=== PATIENT | female | born 1985 | race Caucasian/White ===

== ENCOUNTER → 2018-09-10 12:34 | Outpatient (CLI) | payer OTHER, SELFPAY ==
--- NOTE | 2018-09-10 12:39 | US_ITS ---
US thyroid HISTORY: Follow-up thyroid nodules, history of thyroid biopsy ITS.REASON: AUTOMIMMUNE HYPOTHYROIDISM ORDERING PHYSICIAN: Morena Romero PATIENT AGE: 33 years Comparison: None FINDINGS: Right lobe: The right lobe measures 4.1 x 1.4 x 1.7 cm and demonstrates heterogeneous echogenicity. No discrete nodule. The left lobe is 4.6 x 1.5 x 1.8 cm also showing heterogeneous echogenicity. An isoechoic area in the lower pole on the left is once again noted a 2.7 x 1 cm similar to the previous exam. The isthmus is thickened at 7 mm. IMPRESSION: Overall no change in the enlarged thyroid gland with heterogeneous echogenicity. No change left-sided thyroid nodule
== END ==
PROVIDERS: PCP Nurse Practitioner Family; Visit Provider Nurse Practitioner Family
DX: E03.9 Hypothyroidism, unspecified (principal); R60.9 Edema, unspecified
CPT/HCPCS: 76536

== ENCOUNTER 2020-03-14 17:56 | Emergency (ER) | payer OTHER, SELFPAY ==
[2020-03-14 18:02] VITALS: BP 119/83; PULSE 80; RESP 18; TEMP 36.7; O2SAT 99; BMI 43.4
--- NOTE | 2020-03-14 18:12 | HMH.EDGENADL ---
ED Disposition Clinical Impression: Conjunctivitis Qualifiers: Conjunctivitis type: acute Acute conjunctivitis type: unspecified Laterality: right Qualified Code(s): H10.31 - Unspecified acute conjunctivitis, right eye Disposition: Home, Self-Care Condition on Discharge: Good Additional Instructions: use eye drops as directed and f/u w/ optometry for re-eval Referrals: Abner Noel MD [Primary Care Provider] - - Critical Care Critical Care Time: No Attestation: On 03/14/20, the high probability of a clinically significant, sudden or life threatening deterioration of the following system(s) required my full and direct attention, intervention and personal management. The time I documented below is in addition to time spent performing reported procedures but includes the following listed in this critical care notation. Medical Decision Making - Medical Records Medical records reviewed: Yes: I reviewed the patient's medical records. - Alexander Inquiry Pt receiving controlled substance: No Orders (Tests/Meds): ED MEDICATIONS Generic Name Dose Route Start Last Admin Trade Name Freq PRN Reason Stop Dose Admin Neomycin/Polymyxin/Bacitracin 2 gm 03/14/20 18:10 Neosporin Ophth Ointment 3.5gm Tube OP 03/14/20 18:11 ONCE ONE Tetracaine HCl 2 ml 03/14/20 18:10 Tetracaine 0.5% Ophth Solution 15ml OP 03/14/20 18:11 ONCE ONE General Adult HPI - General Stated complaint: Greese squirted in face Time Seen by Provider: 03/14/20 18:12 Mode of Arrival: Ambulatory Source of Information: Patient Limitations: No Limitations - History of Present Illness HPI narrative: Is a 35-year-old female who presents with complaint of right eye pain after sustaining a burn with hot grease while cooking just prior to arrival. Patient reports cooking frozen Romanian fries with hot grease whenever inserting the fries some grease splashed back into her face. Patient reports constant burning to the right eye without any palliating or provoking symptoms. No visual acuity change. No other complaints or injuries. - Related Data Home Medications Medication Instructions Recorded Confirmed Furosemide [Furosemide 20mg Tab] 20 mg PO DAILY 08/11/18 08/11/18 Levothyroxine Sodium 88 mcg PO DAILY 08/11/18 08/11/18 [Levothyroxine 88mcg (0.088mg) Tab] Omeprazole [Omeprazole 20mg 20 mg PO DAILY 08/11/18 08/11/18 Capsule] Potassium Chloride [Micro-K 10mEq 1 tab PO DAILY 08/11/18 08/11/18 cap] Spironolactone 50 mg PO BID 08/11/18 08/11/18 Allergies Allergy/AdvReac Type Severity Reaction Status Date / Time No Known Allergies Allergy Verified 02/16/20 16:01 [facility] History - Hepatitis A Screen Attestation statement:: This patient has been screened for Hepatitis A risk factors. I have reviewed the patient's past medical history: Yes Other Medical History: Reports: Hypothyroidism Laterality Cases: Left: Carpal Tunnel Release Other Surgeries: Yes: No Previous Surgery, Tubal Ligation Amputation: No Fractures: No - Social History Smoking Status: Never smoker Alcohol Intake: never Substance Use Type: denies use Occupational Status: employed ROS Obtained: Yes All systems reviewed & no additional complaints Physical Exam - General General appearance: alert, in no apparent distress - Eye Eye exam: Present: PERRL, EOMI - Expanded Eye Exam Eyelids: left: normal inspection, right: erythema Pupils: Bilateral: regular, round Sclera/Conjunctival: left: normal inspection, right: injection - Respiratory Respiratory exam: Present: normal lung sounds bilaterally - Cardiovascular Cardiovascular exam: Present: regular rate, normal rhythm, normal heart sounds - Neurological Exam Neurological exam: Present: alert, oriented X3
[2020-03-14 18:31] VITALS: BP 116/69; PULSE 79; O2SAT 98
[2020-03-14 18:45] VITALS: BP 116/69; PULSE 71; RESP 18; TEMP 36.7; O2SAT 98
== END 2020-03-14 18:46 | disposition home or self-care (01) ==
PROVIDERS: Emergency Provider Emergency Medicine; PCP Internal Medicine Adolescent Medicine
DX: H10.31 Unspecified acute conjunctivitis, right eye (principal); E03.9 Hypothyroidism, unspecified
CPT/HCPCS: 99282

== ENCOUNTER → 2020-06-06 08:57 | Outpatient (CLI) | payer OTHER, SELFPAY | PROVIDERS: PCP Internal Medicine Adolescent Medicine; Visit Provider Internal Medicine Adolescent Medicine | DX: Z03.818 Encounter for observation for suspected exposure to other biological agents ruled out (principal) | CPT/HCPCS: U0003 ==

== ENCOUNTER → 2020-06-10 07:54 | Outpatient (CLI) | payer OTHER, SELFPAY ==
[2020-06-11 14:10] LABS: Covid-19 Nasal PCR Sendout Lex NOT DETECTED
== END ==
PROVIDERS: PCP Internal Medicine Adolescent Medicine; Visit Provider Internal Medicine Adolescent Medicine
DX: Z03.818 Encounter for observation for suspected exposure to other biological agents ruled out (principal)
CPT/HCPCS: U0004

== ENCOUNTER → 2020-10-04 09:44 | Outpatient (CLI) | payer OTHER, SELFPAY | PROVIDERS: PCP Internal Medicine Adolescent Medicine; Visit Provider Nurse Practitioner Family | DX: Z20.822 Contact with and (suspected) exposure to COVID-19 (principal) | CPT/HCPCS: U0003 ==

== ENCOUNTER → 2020-12-28 08:32 | Outpatient (CLI) | payer OTHER, SELFPAY ==
--- NOTE | 2020-12-28 08:36 | US_ITS ---
PROCEDURE: US THYROID CLINICAL INDICATION: THYROID NODULE Follow-up thyroid nodule COMPARISON: US BX US BIOPSY OR PARACENTESIS from 12/20/2016 US THY US thyroid from 09/10/2018 FINDINGS: The isthmus is prominent at 6 mm with heterogeneous echogenicity. The right lobe is 3.8 x 1.4 x 1.6 cm with heterogeneous echogenicity. Ill-defined 12 x 4 mm area of decreased echogenicity is present in the upper pole probably not significantly changed. The left lobe is 4.7 x 1.4 x 2.1 cm also with heterogeneous echogenicity. At 3 x 1.2 cm area of homogeneous echogenicity is present in the lower pole on the left. This area was previously biopsied demonstrated benign findings. IMPRESSION: Overall no significant change in the enlarged left lobe of the thyroid gland with dominant nodule. No change small nodule right lobe. Dictated by: Chadd Meza MD 12/28/2020 17:57 Chadd Meza MD in [place] 12/28/2020 17:57
== END ==
PROVIDERS: PCP Nurse Practitioner Family; Visit Provider Nurse Practitioner Family
DX: E04.1 Nontoxic single thyroid nodule (principal)
CPT/HCPCS: 76536

== ENCOUNTER → 2021-05-18 08:01 | Outpatient (CLI) | payer OTHER, SELFPAY ==
[2021-05-18 09:12] LABS: Alanine Aminotransferase 30 U/L (12-78); Albumin Level 3.8 g/dl (3.5-5.0); Albumin/Globulin Ratio 1.4 (1.1-1.8); Alkaline Phosphatase 48 U/L (38-126); Anion Gap 12.7 mEq/L (5-15); Aspartate Amino Transferase 24 U/L (14-36); Bilirubin,Total 0.3 mg/dl (0.2-1.3); Blood Urea Nitrogen 10 mg/dl (7-17); Calcium 8.7 mg/dl (8.4-10.2); Carbon Dioxide 28 mmol/L (22.0-30.0); Chloride 104 mmol/L (98-107); Estimated Glomerular Filt Rate 72 ml/min (>60); GFR (African American) 87 ML/MIN (>60); Globulin 2.7 g/dL (1.3-3.2); Glucose 86 mg/dl (74-100); Potassium 4.7 mmoL/L (3.5-5.1); Sodium 140 mmol/L (136-145); Total Protein,Serum 6.5 g/dl (6.3-8.2)
[2021-05-18 09:30] LABS: 25-OH Vitamin D, Total 46.6 ng/mL (30-100); Free T4 (Free Thyroxine) 0.72 ng/dl (0.78-2.19)
[2021-05-18 09:43] LABS: Thyroid Stimulating Hormone 3.66 uIU/mL (0.465-4.68)
== END ==
LOC: LAB 08:02
PROVIDERS: Visit Provider Nurse Practitioner Family
DX: E03.9 Hypothyroidism, unspecified (principal); E55.9 Vitamin D deficiency, unspecified
CPT/HCPCS: 36415; 80053; 82306; 84439; 84443

== ENCOUNTER → 2022-02-23 07:47 | Outpatient (CLI) | payer OTHER, SELFPAY ==
--- NOTE | 2022-02-23 07:53 | MM_ITS ---
PROCEDURE INFORMATION: Exam: Bilateral Screening 3D Mammography Exam date and time: 02/23/2022 7:59 AM Age: 37 years old Clinical indication: Screening examination TECHNIQUE: Imaging protocol: Bilateral Screening tomosynthesis and 2D mammography including computer-aided detection (CAD) when performed. COMPARISON: No relevant prior studies available. FINDINGS: MAMMOGRAPHY: Breast composition: There are scattered areas of fibroglandular density. Mass: None. Architectural distortion: None. Calcifications: No suspicious calcifications. Asymmetric density: None. Skin thickening: None. Axillary adenopathy: None. IMPRESSION: No mammographic evidence of malignancy. Annual screening is recommended unless otherwise clinically indicated. ASSESSMENT: BI-RADS Category 1: Negative
--- NOTE | 2022-02-23 10:54 | XR_ITS ---
FINAL REPORT CLINICAL HISTORY: COUGH FINDINGS: Two views of the chest were obtained. The heart size and pulmonary vascularity are within normal limits. The mediastinum is normal. No acute pulmonary abnormality is identified. There is no pneumothorax. The bony thorax is intact. IMPRESSION: No active cardiopulmonary disease. Reviewed, Interpreted and Dictated by Hilario Holliday III, MD Transcribed by Gini Davenport Authenticated and [facility]
== END ==
PROVIDERS: PCP Nurse Practitioner Family; Visit Provider Nurse Practitioner Family
DX: Z12.31 Encounter for screening mammogram for malignant neoplasm of breast (principal); Z80.3 Family history of malignant neoplasm of breast; R50.9 Fever, unspecified
CPT/HCPCS: 71046; 77063; 77067

== ENCOUNTER → 2022-03-17 11:05 | Outpatient (CLI) | payer OTHER, SELFPAY | LOC: SL 11:08 | PROVIDERS: PCP Nurse Practitioner Family; Visit Provider Nurse Practitioner Family | DX: G47.30 Sleep apnea, unspecified (principal) | CPT/HCPCS: G0399 ==

== ENCOUNTER 2022-05-23 08:00 | Outpatient (RCR) | payer OTHER, SELFPAY ==
--- NOTE | 2022-03-29 09:50 | HMH.PTOPWND ---
Rehab Outpt Wound Evaluation Rehab OP Wound Evaluation Start: 03/29/22 09:02 Freq: Status: Active Protocol: Document 03/29/22 09:32 JOSE (Rec: 03/29/22 09:49 PHOAVEL [id number]) Electronically Signed By Keenan Trejo, PT 03/29/22 09:32 Subjective/History History History Pt is 37 yowf who presents with c/o B LE swelling x ~ 2 yrs with insidious onset of symptoms. She reports edema does not decrease at night with propping of LEs and seems to intermittently get worse for no reason. She reports increased pain in B LE with increased edema and some palpation tenderness in both lower legs. No numbness or tingling noted. She reports prescribed diuretics have not decreased her edema at all. She reports PMH of hypothyroid and tubal ligation. Subjective Subjective Currently pain is 2/10, at worst pain is 5/10. B lower leg palpation tenderness 2/4. 2+ pitting edema to B feet and lower legs. Lymphedema Eval Classification of Lymphedema Secondary Lymphedema Yes Stemmer's sign Stemmer's Sign no Stage of Lymphedema Lymphedema stages Stage I (Pitting edema, reduces w/ elevation, no fibrosis) Skin Changes Dry Skin Yes Redness Yes Other Changes Yes Pain Scale Pain Scale (0-10) 5 Affected Extremities Areas Affected by Lymphedema/Edema Right Lower Extremity,Left Lower Extremity Manual Lymphatic Drainage Treatment Area MLD Treatment Area Right Lower Extremity,Left Lower Extremity Wound Problems/Impairments Impairments Problems/Impairmments Palpation Tenderness,Impaired Endurance,Impaired Recreational Activities, Increased Edema,Lymphedema Present,Subjective C/O Pain, Impaired Self Care/Self Management Prognosis Rehab Potential Good Clinical Impression Consistent with Diagnosis Yes Short Term Goals Number of Weeks 2 Decr
--- NOTE | 2022-04-28 08:48 | HMH.RHREAS ---
Rehab Reassessment Rehab OP Re-assessment Start: 04/28/22 08:45 Freq: Status: Active Protocol: Document 04/28/22 08:45 JOSE (Rec: 04/28/22 08:48 PHOAVEL [id number]) E-signed By Keenan Trejo, PT Rehab Re-assessment Subjective Subjective Pt reports much less pain overall. 0/10 currently, 2/10 at worst. Objective Objective Notes Circumferential measurements: R LE total 220.2 cm which is - 7.4 cm since initial eval. L LE total 221.6 cm which is -5. 1 cm since initial eval. Assessment Progress Assessment Progressing as Expected Assessment Notes Pt has shown significant improvements in pain and tenderness to palpation. Decreased edema noted per circumferential measurements. Tolerating increased activity as well. Needs to continue compression garment wear. Patient goals met ST,2,3,4 Goals Not Met LT,2,3,4,5,6 Revised Goals none Plan Plan Continue per initial POC. Frequency of Therapy 2 x/wk Duration of therapy 4 wks Time and Billing Re-Eval Time 13 Re-Eval Billing Units 1 PHYSICIAN CERTIFICATION: I certify the specified therapy services for Morena Mcclellan are required, authorized, and reviewed every 30 days.
== END 2022-05-23 08:05 | disposition home or self-care (01) ==
LOC: PT 08:00
PROVIDERS: PCP Nurse Practitioner Family; Visit Provider Nurse Practitioner Family
DX: R60.0 Localized edema (principal)
CPT/HCPCS: 97140; 97162; 97164; 97760

== ENCOUNTER → 2022-05-24 19:57 | Outpatient (CLI) | payer OTHER, SELFPAY | PROVIDERS: PCP Internal Medicine Adolescent Medicine; Visit Provider Specialist | DX: G47.33 Obstructive sleep apnea (adult) (pediatric) (principal); G47.36 Sleep related hypoventilation in conditions classified elsewhere; R40.0 Somnolence; R06.83 Snoring | CPT/HCPCS: 95810 ==

== ENCOUNTER → 2023-03-27 08:00 | Outpatient (CLI) | payer OTHER, SELFPAY ==
--- NOTE | 2023-03-27 08:03 | MM_ITS ---
PROCEDURE INFORMATION: Exam: MG Bilateral Screening 3D Mammography Exam date and time: 03/27/2023 7:55 AM Age: 38 years old Clinical indication: Screening. Her mother had breast cancer at age 50 and her sister had breast cancer at age 50. TECHNIQUE: Imaging protocol: Bilateral Screening tomosynthesis and 2D mammography including computer-aided detection (CAD) when performed. COMPARISON: 1. MG MM DIG SCREENING MAMM BI W/CAD 02/23/2022 7:59 AM 2. BR US BREAST-RT 04/23/2013 8:07 AM FINDINGS: MAMMOGRAPHY: Breast composition: There are scattered areas of fibroglandular density. Mass: None. Architectural distortion: None. Calcifications: No suspicious calcifications. Asymmetric density: None. Skin thickening: None. Axillary adenopathy: None. IMPRESSION: No mammographic evidence of malignancy. Annual screening is recommended unless otherwise clinically indicated. ASSESSMENT: BI-RADS Category 1: Negative
== END ==
PROVIDERS: PCP Internal Medicine Adolescent Medicine; Visit Provider Nurse Practitioner Family
DX: Z12.31 Encounter for screening mammogram for malignant neoplasm of breast (principal); Z80.3 Family history of malignant neoplasm of breast
CPT/HCPCS: 77063; 77067

== ENCOUNTER 2023-06-11 09:45 | Outpatient (RCR) | payer OTHER, SELFPAY ==
--- NOTE | 2023-06-11 10:45 | HMH.OTOPEV ---
OT Inpatient Evaluation Rehab OT Outpatient Eval Start: 06/11/23 10:35 Freq: Status: Active Protocol: Document 06/11/23 10:35 RMARSHALL (Rec: 06/11/23 10:44 RMARSHALL [id number]) E-signed By Bryan House, OT Outpatient Therapy Subjective History Subjective History Pt seen this date for initial evaluation to right shoulder. Pt has been experiencing pain at right shoulder for ~1 month now. She does not recall a specific injury causing pain to begin. Pt does work fulltime and her duties require constant repetitive motion of typing and other desk work. At this time, her pain is constand, but it varies. She demonstrates with a slight decline in AROM and strength at right shoulder. Pt is right hand dominant. Pt has not had a MRI or x-ray of shoulder. Pt will continue to be seen twice a week in order to address right shouler deficits. New diagnosis of cancer in past 12 No months? Chief Complaint Pain,Weakness Symptom Type Ache,Throb,Dull Symptoms Relieved By Rest/Positioning Symptoms Aggravated By Physical Activity,Lifting Prior Functional Limitations None Current Functional Limitations Reaching,Lifting,Housework, Desk Work/Reading,Sleeping Symptom Description Constant but Variable Level of pain today (0-10) 2 Pain scale - at its best (0-10) 2 Pain scale - at its worst (0-10) 7 Shoulder/Elbow Eval Shoulder Objective Measurements Shoulder ROM Right Shoulder Abduction Active Range of 135 degrees Motion (degrees) Shoulder Flexion Active Range of Motion 145 degrees (degrees) Query Text: Shoulder External Rotation Active Range 75 degrees of Motion (degrees) Shoulder Internal Rotation Active Range 70 degrees of Motion (degrees) pain with active ROM shoulder exam right standard pain with passive ROM shoulder exam right standard decreased ROM shoulder exam standard right Shoulder MMT Shoulder Abduction Strength Grade 4- Good- Shoulder Flexion Strength Grade 4- Good- Shoulder External Rotation Strength 4- Good- Grade Shoulder Internal Rotation Strength 4- Good- Grade Shoulder Special Tests impingement sign present shoulder exam right standard Shoulder Empty Can (Supraspinatus) Test Positive Right Shoulder [place]-Karlos Impingement Positive Right Test Shoulder Neer Impingement Test Positive Right Shoulder [place] Test Negative Right Elbow Objective Measurements QuickDASH Activities Please rate your ability to do the following activities in the last week by selecting the number below the appropriate response. 1. Open a tight or new jar. Mild difficulty 2. Do heavy household appliances salesperson (e.g., wash Mild difficulty olea, floors). 3. Carry a shopping bag or briefcase. No difficulty 4. Wash your back. Mild difficulty 5. Use a knife to cut food. No difficulty 6. Recreational activities in which you Mild difficulty take some force or impact through your arm, shoulder, or hand (e.g., golf, hammering, tennis, etc.). 7. During the past week, to what extent Moderately has your arm, shoulder or hand problem interfered with your normal social activities with family, friends, neighbors or groups? 8. During the past week, were you Slightly limited limited in your work or other regular daily activites as a result of your arm, shoulder or hand problem? 9. Arm, shoulder or hand pain. Mild 10. Tingling (pins and needles) in your Moderate arm, shoulder or hand. 11. During the past week, how much Moderate difficulty difficulty have you had sleeping because of the pain in your arm, shoulder or hand? Quick DASH 23 Work Module (optional) The following questions ask about the impact of your arm, shoulder or hand problem on your ability to work (including homemaking if that is your main work role). 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 Yes 1. Using your usual technique for your Mild difficulty work? 2. Doing your usual work because of arm, Mild difficulty shoulder or hand pain? 3. Doing your work as well as you would Mild difficulty like? 4. Spending your usual amount of time Mild difficulty doing your work? Quick Dash Work Module Score 8 OT Outpatient Assessment Impairments Problems/Impairments Palpation Tenderness,Impaired Range of Motion,Impaired Strength,Impaired Endurance, Impaired Lifting,Impaired Household Care,Impaired Recreational Activities, Impaired Work Activities, Impaired Desk/Computer Activities,Subjective C/O Pain Prognosis Rehab Potential Good Clinical Impression Consistent with Diagnosis Yes Short Term Goals Number of Weeks 3 Increase Range of Motion Yes: Flex: 155 Abd: 145 ER: 80 IR: 70 Increase Strength Yes: 4/5 throughout right shoulder Increase Endurance Yes: Pt will completed R shoulder exercises for ~20 min prior to rest. Decrease Subjective C/O Pain Yes: 5/10 at worst Patient to be Ind w/ HEP Yes: AAROM/AROM exercises; pulleys Tin Whiz Machine Operator Goals Number of Weeks 6 Increase Range of Motion Yes: Flex: 165 Abd: 155 ER: 90 Increase Strength Yes: 5/5 throughout right shoulder Increase Endurance Yes: Pt will tolerate R shoulder exercises for ~30 min prior to rest. Decrease Subjective C/O Pain Yes: 3/10 at worst Patient to be Ind w/ Advanced HEP Yes: Advanced strengthening Outpatient Therapy Plan of Care Treatment Plan May Include Therapeutic Exercise Including Home Yes Exercise Program Manual Therapy Techniques Yes Neuromuscular Re-education Yes Therapeutic Activities to Return to Yes Previous Functional/Work Level ADL/Self Care Education Yes Thermal Modalities Yes Electrical Stimulation Yes Ultrasound/Phonophoresis Yes Iontophoresis Yes Orthotics/Bracing/Splinting Yes Massage Yes Eval/Re-Eval Yes Frequency Times per week 2 Duration Number of Weeks 6 Addendums This patient is a candidate for social No or vocational rehab? Patient/Guardian verbally acknowledges Yes understanding of treatment program and consents to further treatment? Patient/Guardian verbally acknowledges Yes understanding of diagnosis, prognosis and goals for treatment? Eval Complexity OT Charge 03281 - Moderate Complexity PHYSICIAN CERTIFICATION: I certify the specified therapy services for Morena Mcclellan are required, authorized, and reviewed every 30 days.
== END 2023-06-11 11:00 | disposition home or self-care (01) ==
LOC: OT 09:45
PROVIDERS: PCP Internal Medicine Adolescent Medicine; Visit Provider Nurse Practitioner Family
DX: M25.511 Pain in right shoulder (principal)
CPT/HCPCS: 97166

== ENCOUNTER 2024-03-28 08:18 | Outpatient (CLI) | payer OTHER, SELFPAY ==
--- NOTE | 2024-03-28 08:23 | MM_ITS ---
PROCEDURE INFORMATION: Exam: MG Bilateral Screening 3D Mammography Exam date and time: 03/28/2024 8:09 AM Age: 39 years old Clinical indication: Screening examination TECHNIQUE: Imaging protocol: Bilateral Screening tomosynthesis and 2D mammography including computer-aided detection (CAD) when performed. COMPARISON: 1. MG MM DIG SCREENING MAMM BI W/CAD 03/27/2023 7:55 AM 2. MG MM DIG SCREENING MAMM BI W/CAD 02/23/2022 7:59 AM FINDINGS: MAMMOGRAPHY: Breast composition: There are scattered areas of fibroglandular density. Mass: None. Architectural distortion: None. Calcifications: No suspicious calcifications. Asymmetric density: None. Skin thickening: None. Axillary adenopathy: None. IMPRESSION: No mammographic evidence of malignancy. Annual bilateral mammographic screening is recommended to commence at the age of 40 unless otherwise clinically indicated. ASSESSMENT: BI-RADS Category 1: Negative
== END 2024-03-28 23:59 | disposition home or self-care (01) ==
LOC: RAD 08:19
PROVIDERS: PCP Nurse Practitioner Family; Visit Provider Nurse Practitioner Family
DX: Z12.31 Encounter for screening mammogram for malignant neoplasm of breast (principal)
CPT/HCPCS: 77063; 77067

== ENCOUNTER 2025-04-02 16:47 | Outpatient (CLI) | payer BC, SELFPAY ==
--- OUTSIDE RECORDS SUMMARY | 2025-02-03 05:10 | XMS_ITS ---
Author Organization [facility] Address [address] [place] [address] Care Team Providers Care Inker Name Role Phone Abner Noel Primary Care Provider [phone] Morena Romreo Unavailable [phone] Abner Noel Unavailable Unavailable Encounters Encounter Location Date Provider Diagnosis [facility] [address] [place] [address] 02/03/2025 Morena Romero Breast cancer screening Z12.31 Assessments Encounter Date Diagnosis (ICD Code) Assessment Notes Treatment Notes Treatment Clinical Notes Section Notes 02/03/2025 Breast cancer screening (ICD-10 - Z12.31) Plan Of Treatment Pending Test Test Name Order Date Mammogram : Bilateral 02/03/2025 Progress Notes * Morena MCCLELLANDOB:[birth year] (39 yo F)Acc No.[id number]:02/03/2025 Patient: Morena KELLY :1985 A ge:39 Y S ex:Female Address:[place], [address] Subjective: * Chief Complaints: * * Medical History: * Surgical History: * Hospitalization/Major Diagno stic Procedure: * Medications: Objective: * Vitals: * Physical Examination: Assessment: * Assessment: 1. B reast cancer screening - Z12.31 Plan: * Treatment: * Procedure Codes: * true * Date: Generated for Silvestre villagran/Geovanny/Ej on: 0 04/02/2025 04:50 PM EDT
--- OUTSIDE RECORDS SUMMARY | 2025-02-24 08:00 | XMS_ITS ---
Author Organization [facility] Address [address] [place] [address] Care Team Providers Care Insulator Technician Name Role Phone Abner oNel Primary Care Provider Morena Romero Unavailable [phone] Abner Noel Unavailable Unavailable Results Component Value Reference Range Notes LIPID PANEL, STANDARD (7600) Reviewed date:02/27/2025 01:26:10 PM Interpretation: Performing Lab:[facility], [facility] [address], Geoff FitzgeraldEthlIW[address] Jordi Shaw Notes/Report: NON-FASTING; NON-FASTING; NON-FASTING; NON-FASTING; NON-FAST FASTING:YES FASTING: YES CHOLESTEROL, TOTAL 190 <200 mg/dL HDL CHOLESTEROL 66 > OR = 50 mg/dL TRIGLYCERIDES 111 <150 mg/dL LDL-CHOLESTEROL 103 Reference range: <100 Desirable range <100 mg/dL for primary prevention; <70 mg/dL for patients with CHD or diabetic patients with > or = 2 CHD risk factors. LDL-C is now calculated using the Nadine calculation, which is a validated novel method providing better accuracy than the Friedewald equation in the estimation of LDL-C. Ravindra TORREZ et al. HUI. 2013;310(19): 1256-4163 (http://education.Voölks/faq/ZMJ053) CHOL/HDLC RATIO 2.9 <5.0 (calc) NON HDL CHOLESTEROL 124 <130 mg/dL (calc) For patients with diabetes plus 1 major ASCVD risk factor, treating to a non-HDL-C goal of <100 mg/dL (LDL-C of <70 mg/dL) is considered a therapeutic option. COMPREHENSIVE METABOLIC PANYosvany Felix (32587) Reviewed date:02/27/2025 01:26:10 PM Interpretation: Performing Lab:[facility], [facility] [id number] [facility], [facility] HealthIkppSQ[address] Jordi Shaw Notes/Report: NON-FASTING; NON-FASTING; NON-FASTING; NON-FASTING; NON-FAST FASTING:YES FASTING: YES GLUCOSE 85 65-99 mg/dL Fasting reference interval UREA NITROGEN (BUN) 13 7-25 mg/dL CREATININE 0.81 0.50-0.97 mg/dL EGFR 95 > OR = 60 mL/min/1.73m2 BUN/CREATININE RATIO SEE NOTE: 6-22 (calc) Not Reported: BUN and Creatinine are within reference range. SODIUM 141 135-146 mmol/L POTASSIUM 4.1 3.5-5.3 mmol/L CHLORIDE 103 98-110 mmol/L CARBON DIOXIDE 31 20-32 mmol/L CALCIUM 9.3 8.6-10.2 mg/dL PROTEIN, TOTAL 7.0 6.1-8.1 g/dL ALBUMIN 4.3 3.6-5.1 g/dL GLOBULIN 2.7 1.9-3.7 g/dL (calc) ALBUMIN/GLOBULIN RATIO 1.6 1.0-2.5 (calc) BILIRUBIN, TOTAL 0.5 0.2-1.2 mg/dL ALKALINE PHOSPHATASE 43 31-125 U/L AST 14 10-30 U/L ALT 19 6-29 U/L CBC (INCLUDES DIFF/PLT) (639 9) Reviewed date:02/27/2025 01:26:10 PM Interpretation: Performing Lab:[facility], [facility] [id number] [facility], [facility] CenterBvduJE[address] Jordi Shaw Notes/Report: NON-FASTING; NON-FASTING; NON-FASTING; NON-FASTING; NON-FAST FASTING:YES FASTING: YES WHITE BLOOD CELL COUNT 5.4 3.8-10.8 Thousand/ uL RED BLOOD CELL COUNT 4.47 3.80-5.10 Million/uL HEMOGLOBIN 13.5 11.7-15.5 g/dL HEMATOCRIT 44.2 35.0-45.0 % MCV 98.9 80.0-100.0 fL MCH 30.2 27.0-33.0 pg MCHC 30.5 32.0-36.0 g/dL For adults, a slight decrease in the calculated MCHC value (in the range of 30 to 32 g/dL) is most likely not clinically significant; however, it should be interpreted with caution in correlation with other red cell parameters and the patient's clinical condition. RDW 12.7 11.0-15.0 % PLATELET COUNT 206 140-400 Thousand/uL MPV 11.5 7.5-12.5 fL ABSOLUTE NEUTROPHILS 3526 [id number] cells/uL ABSOLUTE LYMPHOCYTES [phone] cells/uL ABSOLUTE MONOCYTES 265 200-950 cells/uL ABSOLUTE EOSINOPHILS 22 15-500 cells/uL ABSOLUTE BASOPHILS 22 0-200 cells/uL NEUTROPHILS 65.3 LYMPHOCYTES 29.0 MONOCYTES 4.9 EOSINOPHILS 0.4 BASOPHILS 0.4 TSH W/REFLEX TO FT4 (41024) Reviewed date:02/27/2025 01:26:10 PM Interpretation: Performing Lab:[facility], [address] docobitesGifcGJ[address] Jordi Shaw Notes/Report: NON-FASTING; NON-FASTING; NON-FASTING; NON-FASTING; NON-FAST FASTING:YES FASTING: YES TSH W/REFLEX TO FT4 4.09 Reference Range > or = 20 Years 0.40-4.50 Ranges First trimester 0.26-2.66 Second trimester 0.55-2.73 Third trimester 0.43-2.91 VITAMIN D,25-OH,TOTAL,IA (17 306) Reviewed date:02/27/2025 01:26:10 PM Interpretation: Performing Lab:[facility] [address], [address] docobitesYyqvZK[address] Jordi Shaw Notes/Report: NON-FASTING; NON-FASTING; NON-FASTING; NON-FASTING; NON-FAST FASTING:YES FASTING: YES VITAMIN D,25-OH,TOTAL,IA 33 30-100 ng/mL Vitamin D Status 25-OH Vitamin D: Deficiency: <20 ng/mL Insufficiency: 20 - 29 ng/mL Optimal: > or = 30 ng/mL For 25-OH Vitamin D testing on patients on D2-supplementation and patients for whom quantitation of D2 and D3 fractions is required, the QuestAssureD(TM) 25-OH VIT D, (D2,D3), LC/MS/MS is recommended: order code 29436 (patients >2yrs). 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 ; Hyperlipidemia LDL goal <130 E78.5 and Vitamin D deficiency E55.9 Assessments Encounter Date Diagnosis (ICD Code) Assessment Notes Treatment Notes Treatment Clinical Notes Section Notes 02/24/2025 Routine medical exam (ICD-10 - Z00.00) 02/24/2025 Autoimmune hypothyroidism (ICD-10 - E03.9) 02/24/2025 Hyperlipidemia LDL goal <130 (ICD-10 - E78.5) 02/24/2025 Vitamin D deficiency (ICD-10 - E55.9) Plan Of Treatment No Information Progress Notes * Morena MCCLELLANDOB:[birth year] (40 yo F)Acc No.[id number]:02/24/2025 Patient: Morena KELLY :1985 A ge:40 Y S ex:Female Address:[address] [place] [address], [id number] Subjective: * Chief Complaints: * * Medical History: * Surgical History: * Hospitalization/Major Diagno stic Procedure: * Medications: Objective: * Vitals: * Physical Examination: Assessment: * Assessment: 1. R outine medical exam - Z00.00 (Primary) 2 . A utoimmune hypothyroidism - E03.9 3 . H yperlipidemia LDL goal <130 - E78.5 4 . V itamin D deficiency - E55.9 Plan: * Treatment: Value Reference Range T RIGLYCERIDES 111 <150 - mg/dL * C HOLESTEROL, TOTAL 190 <200 - mg/dL * H DL CHOLESTEROL 66 > OR = 50 - mg/dL * L DL-CHOLESTEROL 103 H - mg/dL (calc) * C HOL/HDLC RATIO 2.9 <5.0 - (calc) * N ON HDL CHOLESTEROL 124 <130 - mg/dL (calc) * This lab was reviewed by Sun Romero on 02/27/2025 at 13:26 PM EDT ?LAB: COMPREHENSIVE METABOLIC PANEL (49003)* Value Reference Range G LUCOSE 85 65-99 - mg/dL * U BRIANDA NITROGEN (BUN) 13 7-25 - mg/dL * C REATININE 0.81 0.50-0.97 - mg/dL * B UN/CREATININE RATIO SEE NOTE: 6-22 - (calc) * S ODIUM 141 135-146 - mmol/L * P OTASSIUM 4.1 3.5-5.3 - mmol/L * C HLORIDE 103 98-110 - mmol/L * C ARBON DIOXIDE 31 20-32 - mmol/L * C ALCIUM 9.3 8.6-10.2 - mg/dL * P ROTEIN, TOTAL 7.0 6.1-8.1 - g/dL * A LBUMIN 4.3 3.6-5.1 - g/dL * G LOBULIN 2.7 1.9-3.7 - g/dL (calc ) * A LBUMIN/GLOBULIN RATIO 1.6 1.0-2.5 - (calc) * B ILIRUBIN, TOTAL 0.5 0.2-1.2 - mg/dL * A LKALINE PHOSPHATASE 43 31-125 - U/L * A ST 14 10-30 - U/L * A LT 19 6-29 - U/L * E GFR 95 > OR = 60 - mL/min/1 .73m2 * This lab was reviewed by Sun Romero on 02/27/2025 at 13:26 PM EDT ?LAB: CBC (INCLUDES DIFF/PLT) (4542)* Value Reference Range W KALIN BLOOD CELL COUNT 5.4 3.8-10.8 - Thousan d/uL * R ED BLOOD CELL COUNT 4.47 3.80-5.10 - Million/ uL * H EMOGLOBIN 13.5 11.7-15.5 - g/dL * H EMATOCRIT 44.2 35.0-45.0 - % * M CV 98.9 80.0-100.0 - fL * M CH 30.2 27.0-33.0 - pg * M CHC 30.5 L 32.0-36.0 - g/dL * R DW 12.7 11.0-15.0 - % * P LATELET COUNT 206 140-400 - Thousand/u L * N EUTROPHILS 65.3 - % * A BSOLUTE NEUTROPHILS 3526 0931-7385 - cells/uL * L YMPHOCYTES 29.0 - % * A BSOLUTE LYMPHOCYTES [phone] - cells/uL * M ONOCYTES 4.9 - % * A BSOLUTE MONOCYTES 265 200-950 - cells/uL * E OSINOPHILS 0.4 - % * A BSOLUTE EOSINOPHILS 22 15-500 - cells/uL * B ASOPHILS 0.4 - % * A BSOLUTE BASOPHILS 22 0-200 - cells/uL * M PV 11.5 7.5-12.5 - fL * This lab was reviewed by Sun Romero on 02/27/2025 at 13:26 PM EDT ?LAB: TSH W/REFLEX TO FT4 (54265)* Value Reference Range T SH W/REFLEX TO FT4 4.09 - mIU/L * This lab was reviewed by Sun Romero on 02/27/2025 at 13:26 PM EDT ?LAB: VITAMIN D,25-OH,TOTAL,IA (50477)* Value Reference Range V ITAMIN D,25-OH,TOTAL,IA 33 30-100 - ng/mL * This lab was reviewed by Sun Romero on 02/27/2025 at 13:26 PM EDT 2.?Autoimmune hypothyroidism?LAB: LIPID PANEL, STANDARD (4770)* Value Reference Range T RIGLYCERIDES 111 <150 - mg/dL * C HOLESTEROL, TOTAL 190 <200 - mg/dL * H DL CHOLESTEROL 66 > OR = 50 - mg/dL * L DL-CHOLESTEROL 103 H - mg/dL (calc) * C HOL/HDLC RATIO 2.9 <5.0 - (calc) * N ON HDL CHOLESTEROL 124 <130 - mg/dL (calc) * This lab was reviewed by Sun Romero on 02/27/2025 at 13:26 PM EDT ?LAB: COMPREHENSIVE METABOLIC PANEL (51178)* Value Reference Range G LUCOSE 85 65-99 - mg/dL * U BRIANDA NITROGEN (BUN) 13 7-25 - mg/dL * C REATININE 0.81 0.50-0.97 - mg/dL * B UN/CREATININE RATIO SEE NOTE: 6-22 - (calc) * S ODIUM 141 135-146 - mmol/L * P OTASSIUM 4.1 3.5-5.3 - mmol/L * C HLORIDE 103 98-110 - mmol/L * C ARBON DIOXIDE 31 20-32 - mmol/L * C ALCIUM 9.3 8.6-10.2 - mg/dL * P ROTEIN, TOTAL 7.0 6.1-8.1 - g/dL * A LBUMIN 4.3 3.6-5.1 - g/dL * G LOBULIN 2.7 1.9-3.7 - g/dL (calc ) * A LBUMIN/GLOBULIN RATIO 1.6 1.0-2.5 - (calc) * B ILIRUBIN, TOTAL 0.5 0.2-1.2 - mg/dL * A LKALINE PHOSPHATASE 43 31-125 - U/L * A ST 14 10-30 - U/L * A LT 19 6-29 - U/L * E GFR 95 > OR = 60 - mL/min/1 .73m2 * This lab was reviewed by Sun Romero on 02/27/2025 at 13:26 PM EDT ?LAB: CBC (INCLUDES DIFF/PLT) (1125)* Value Reference Range W KALIN BLOOD CELL COUNT 5.4 3.8-10.8 - Thousan d/uL * R ED BLOOD CELL COUNT 4.47 3.80-5.10 - Million/ uL * H EMOGLOBIN 13.5 11.7-15.5 - g/dL * H EMATOCRIT 44.2 35.0-45.0 - % * M CV 98.9 80.0-100.0 - fL * M CH 30.2 27.0-33.0 - pg * M CHC 30.5 L 32.0-36.0 - g/dL * R DW 12.7 11.0-15.0 - % * P LATELET COUNT 206 140-400 - Thousand/u L * N EUTROPHILS 65.3 - % * A BSOLUTE NEUTROPHILS 3526 3971-1799 - cells/uL * L YMPHOCYTES 29.0 - % * A BSOLUTE LYMPHOCYTES [phone] - cells/uL * M ONOCYTES 4.9 - % * A BSOLUTE MONOCYTES 265 200-950 - cells/uL * E OSINOPHILS 0.4 - % * A BSOLUTE EOSINOPHILS 22 15-500 - cells/uL * B ASOPHILS 0.4 - % * A BSOLUTE BASOPHILS 22 0-200 - cells/uL * M PV 11.5 7.5-12.5 - fL * This lab was reviewed by Sun Romero on 02/27/2025 at 13:26 PM EDT ?LAB: TSH W/REFLEX TO FT4 (40578)* Value Reference Range T SH W/REFLEX TO FT4 4.09 - mIU/L * This lab was reviewed by Sun Romero on 02/27/2025 at 13:26 PM EDT ?LAB: VITAMIN D,25-OH,TOTAL,IA (53688)* Value Reference Range V ITAMIN D,25-OH,TOTAL,IA 33 30-100 - ng/mL * This lab was reviewed by Sun Romero on 02/27/2025 at 13:26 PM EDT 3.?Hyperlipidemia LDL goal <130?LAB: LIPID PANEL, STANDARD (7600)* Value Reference Range T RIGLYCERIDES 111 <150 - mg/dL * C HOLESTEROL, TOTAL 190 <200 - mg/dL * H DL CHOLESTEROL 66 > OR = 50 - mg/dL * L DL-CHOLESTEROL 103 H - mg/dL (calc) * C HOL/HDLC RATIO 2.9 <5.0 - (calc) * N ON HDL CHOLESTEROL 124 <130 - mg/dL (calc) * This lab was reviewed by Sun Romero on 02/27/2025 at 13:26 PM EDT ?LAB: COMPREHENSIVE METABOLIC PANEL (35738)* Value Reference Range G LUCOSE 85 65-99 - mg/dL * U BRIANDA NITROGEN (BUN) 13 7-25 - mg/dL * C REATININE 0.81 0.50-0.97 - mg/dL * B UN/CREATININE RATIO SEE NOTE: 6-22 - (calc) * S ODIUM 141 135-146 - mmol/L * P OTASSIUM 4.1 3.5-5.3 - mmol/L * C HLORIDE 103 98-110 - mmol/L * C ARBON DIOXIDE 31 20-32 - mmol/L * C ALCIUM 9.3 8.6-10.2 - mg/dL * P ROTEIN, TOTAL 7.0 6.1-8.1 - g/dL * A LBUMIN 4.3 3.6-5.1 - g/dL * G LOBULIN 2.7 1.9-3.7 - g/dL (calc ) * A LBUMIN/GLOBULIN RATIO 1.6 1.0-2.5 - (calc) * B ILIRUBIN, TOTAL 0.5 0.2-1.2 - mg/dL * A LKALINE PHOSPHATASE 43 31-125 - U/L * A ST 14 10-30 - U/L * A LT 19 6-29 - U/L * E GFR 95 > OR = 60 - mL/min/1 .73m2 * This lab was reviewed by Sun Romero on 02/27/2025 at 13:26 PM EDT ?LAB: CBC (INCLUDES DIFF/PLT) (5181)* Value Reference Range W KALIN BLOOD CELL COUNT 5.4 3.8-10.8 - Thousan d/uL * R ED BLOOD CELL COUNT 4.47 3.80-5.10 - Million/ uL * H EMOGLOBIN 13.5 11.7-15.5 - g/dL * H EMATOCRIT 44.2 35.0-45.0 - % * M CV 98.9 80.0-100.0 - fL * M CH 30.2 27.0-33.0 - pg * M CHC 30.5 L 32.0-36.0 - g/dL * R DW 12.7 11.0-15.0 - % * P LATELET COUNT 206 140-400 - Thousand/u L * N EUTROPHILS 65.3 - % * A BSOLUTE NEUTROPHILS 3526 9986-2620 - cells/uL * L YMPHOCYTES 29.0 - % * A BSOLUTE LYMPHOCYTES [phone] - cells/uL * M ONOCYTES 4.9 - % * A BSOLUTE MONOCYTES 265 200-950 - cells/uL * E OSINOPHILS 0.4 - % * A BSOLUTE EOSINOPHILS 22 15-500 - cells/uL * B ASOPHILS 0.4 - % * A BSOLUTE BASOPHILS 22 0-200 - cells/uL * M PV 11.5 7.5-12.5 - fL * This lab was reviewed by Sun Romero on 02/27/2025 at 13:26 PM EDT ?LAB: TSH W/REFLEX TO FT4 (58452)* Value Reference Range T SH W/REFLEX TO FT4 4.09 - mIU/L * This lab was reviewed by Sun Romero on 02/27/2025 at 13:26 PM EDT ?LAB: VITAMIN D,25-OH,TOTAL,IA (83765)* Value Reference Range V ITAMIN D,25-OH,TOTAL,IA 33 30-100 - ng/mL * This lab was reviewed by Sun Romero on 02/27/2025 at 13:26 PM EDT 4.?Vitamin D deficiency?LAB: LIPID PANEL, STANDARD (7600)* Value Reference Range T RIGLYCERIDES 111 <150 - mg/dL * C HOLESTEROL, TOTAL 190 <200 - mg/dL * H DL CHOLESTEROL 66 > OR = 50 - mg/dL * L DL-CHOLESTEROL 103 H - mg/dL (calc) * C HOL/HDLC RATIO 2.9 <5.0 - (calc) * N ON HDL CHOLESTEROL 124 <130 - mg/dL (calc) * This lab was reviewed by Sun Romeor on 02/27/2025 at 13:26 PM EDT ?LAB: COMPREHENSIVE METABOLIC PANEL (18956)* Value Reference Range G LUCOSE 85 65-99 - mg/dL * U BRIANDA NITROGEN (BUN) 13 7-25 - mg/dL * C REATININE 0.81 0.50-0.97 - mg/dL * B UN/CREATININE RATIO SEE NOTE: 6-22 - (calc) * S ODIUM 141 135-146 - mmol/L * P OTASSIUM 4.1 3.5-5.3 - mmol/L * C HLORIDE 103 98-110 - mmol/L * C ARBON DIOXIDE 31 20-32 - mmol/L * C ALCIUM 9.3 8.6-10.2 - mg/dL * P ROTEIN, TOTAL 7.0 6.1-8.1 - g/dL * A LBUMIN 4.3 3.6-5.1 - g/dL * G LOBULIN 2.7 1.9-3.7 - g/dL (calc ) * A LBUMIN/GLOBULIN RATIO 1.6 1.0-2.5 - (calc) * B ILIRUBIN, TOTAL 0.5 0.2-1.2 - mg/dL * A LKALINE PHOSPHATASE 43 31-125 - U/L * A ST 14 10-30 - U/L * A LT 19 6-29 - U/L * E GFR 95 > OR = 60 - mL/min/1 .73m2 * This lab was reviewed by Sun Romero on 02/27/2025 at 13:26 PM EDT ?LAB: CBC (INCLUDES DIFF/PLT) (3861)* Value Reference Range W KALIN BLOOD CELL COUNT 5.4 3.8-10.8 - Thousan d/uL * R ED BLOOD CELL COUNT 4.47 3.80-5.10 - Million/ uL * H EMOGLOBIN 13.5 11.7-15.5 - g/dL * H EMATOCRIT 44.2 35.0-45.0 - % * M CV 98.9 80.0-100.0 - fL * M CH 30.2 27.0-33.0 - pg * M CHC 30.5 L 32.0-36.0 - g/dL * R DW 12.7 11.0-15.0 - % * P LATELET COUNT 206 140-400 - Thousand/u L * N EUTROPHILS 65.3 - % * A BSOLUTE NEUTROPHILS 3526 3390-9046 - cells/uL * L YMPHOCYTES 29.0 - % * A BSOLUTE LYMPHOCYTES 3826 350-5616 - cells/uL * M ONOCYTES 4.9 - % * A BSOLUTE MONOCYTES 265 200-950 - cells/uL * E OSINOPHILS 0.4 - % * A BSOLUTE EOSINOPHILS 22 15-500 - cells/uL * B ASOPHILS 0.4 - % * A BSOLUTE BASOPHILS 22 0-200 - cells/uL * M PV 11.5 7.5-12.5 - fL * This lab was reviewed by Sun Romero on 02/27/2025 at 13:26 PM EDT ?LAB: TSH W/REFLEX TO FT4 (16583)* Value Reference Range T SH W/REFLEX TO FT4 4.09 - mIU/L * This lab was reviewed by Sun Romero on 02/27/2025 at 13:26 PM EDT ?LAB: VITAMIN D,25-OH,TOTAL,IA (99274)* Value Reference Range V ITAMIN D,25-OH,TOTAL,IA 33 30-100 - ng/mL * This lab was reviewed by Sun Romero on 02/27/2025 at 13:26 PM EDT * Procedure Codes: * true * Date: Generated for Silvestre villagran/Geovanny/eTraysmitting on: 0 04/02/2025 04:50 PM EDT
--- OUTSIDE RECORDS SUMMARY | 2025-03-05 04:45 | XMS_ITS ---
Author Organization [place] [facility] PE D ANGELA Address [address] [facility] [address] [place] [address] Care Team Providers Care Professor Of Environmental Science Name Role Phone Abner Noel Primary Care Provider Morena Romero Unavailable [phone] Abner Noel Unavailable Unavailable Allergies No Known Allergies REASON FOR VISIT yrly physical, not sleeping, weight gain, mood changes, body rate temperature regulations, chest pressure Medications Medication SIG (Take, Route, Frequency, Duration) Notes Start Date End Date Status Levothyroxine Sodium 50 MCG 1 tablet in the morning on an empty stomach Orally Once a day; Duration: 90 days 03/05/2025 Active Vital Signs Temperature 97.7 degrees Fahrenheit 03/05/20 25 Blood pressure systolic 120 mm Hg 03/05/20 25 Blood pressure diastolic 70 mm Hg 025 Heart Rate 72 /min 03/05/2025 Height 5 ft 1 in in 03/05/2025 Weight 222.8 lbs 03/05/2025 BMI 42.09 kg/m2 03/05/2025 Encounters Encounter Location Date Provider Diagnosis [place] [facility] PED ANGELA [address] [facility] [address] [place] [address] 03/05/2025 Morena Romero Routine medical exam Z00.00 ; 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 Could be contributing to some of her recent symptoms. If these symptoms don't improve could consider trial of low dose SSRI vs repeating sleep study to see if LENCHO has progressed and insurance may now cover CPAP 03/05/2025 BMI 40.0-44.9, adult (ICD-10 - Z68.41) overall has done a good job losing weight over the past year. encouraged to continue efforts. 03/05/2025 Obesity, Class III, BMI 40-49.9 (morbid obesity) (ICD-10 - E66.813) 03/05/2025 LENCHO (obstructive sleep apnea) (ICD-10 - G47.33) 03/05/2025 Daytime somnolence (ICD-10 - R40.0) 03/05/2025 Mood changes (ICD-10 - R45.86) Plan Of Treatment Medication Medication Name Sig Start Date Stop Date Notes Levothyroxine Sodium 50 MCG 1 tablet in the morning on an empty stomach Orally Once a day; Duration: 90 days 03/05/2025 Levothyroxine Sodium 150 MCG 1 tab(s) orally once a day Treatment Notes Assessment Notes Routine medical exam Well Visit, Ages 18 to 65: Care Instructions material was published, Learning About Stress material was published Next Appt Details Follow Up: 3 Months, Reason: Progress Notes * Morena MCCLELLANDOB:[birth year] (40 yo F)Acc No.[id number]:03/05/2025 Progress Notes Patient: Morena KELLY Provider: ANNE MARIE Lieberman :1985 A ge:40 Y S ex:Female Date:03/05/2025 Address:[facility] [id number] Pcp:Abner Noel Subjective: * Chief Complaints: * 1 . Yrly physical. 2. Not sleeping. 3. Weight gain. 4. Mood changes. 5. Body rate temperature regulations. 6. Chest pressure. * HPI: rachel hernandez: Presents today for chronic disease FU and wellness review for insurance. Labs reviewed as well. She's been off of all prescription medications for 2-3 months...simply fell out of the habit of taking them and never resumed. This includes her thyroid replacement.? She notes poor sleep, depressed mood intermittently, feeling unusually hot. Menses are regular. Sometimes has chest pressure a/w these symptoms. Does endorse lots of stressors recently. PAP is due, last was with Dr Hudson. No issues recently with edema. Weight is down overall but has regained some. * ROS: R ESPIRATORY: Reviewed, No Symptoms Reported: Y es. C ARDIOLOGY: Reviewed, No Symptoms Reported: Y es. C ONSTITUTIONAL: no L oss of appetite. n o F ever. F atigue yes. D ERMATOLOGY: no R kelly. E NDOCRINOLOGY: See HPI Y es. G ASTROENTEROLOGY: no N ausea. n o V omiting. n o D iarrhea.? M USCULOSKELETAL: See HPI Y es. P SYCHOLOGY: See HPI Y es. U ROLOGY: Reviewed, No Symptoms Reported: Y es. * Medical History: H ypothyroidism, Enlarged thyroid with thyroid nodule - biopsy c/w lymphocytic thyroiditis, Morbid (severe) obesity due to excess calories, vitamin D deficiency, Mild LENCHO. * Surgical History: t ubal 2009, thyroid biopsy 2017, capel tunnel on left hand . * Hospitalization/Major Diagno stic Procedure: Julianna rivera 2008 & 2009. * Family History: F ather: , massive heart attack @ 71. M other: alive, breast cancer, heart attack x 2,stent x 3, diagnosed with Cancer, Hypertension, Heart Disease. P aternal Grand Father: , family history unknown . P aternal Grand Mother: , family history unknown . M aternal Grand Father: , diagnosed with Cancer. M aternal Grand Mother: , passed at 94 years old, possible massive stroke. P aternal uncle: , 3 uncles , cancer related and unknown to the other. P aternal aunt: , unknown for reasons of . M aternalefty uncle: alive, family history unknown . M aternal aunt: alive, family history unknown .?Siblings: , 1 sister from cancer, diagnosed with Cancer. Julianna dennison: alive.?1 sister(s) . 2 son(s) - healthy. . * Social History: S moking A re you a:: nonsmoker. R ecreational drug use: no. Exercise: yes, daily walking. Home smoke detector use: yes. Caffeine: yes, frequency: one soda daily. Living Will: No. Alcohol: socially, Type: , Frequency: ,Years: , Determination:. Sexually active: yes. Travel outside [place]: yes, [facility]2022. Occupation: [employer] OPERATOR. * Medications: N ot-Taking Levothyroxine Sodium 150 MCG Tablet 1 tab(s) orally once a day , Discontinued NYQUIL COUGH 30 MG-12.5 MG/30 ML LIQUID 30 ML ORALLY EVERY 6 HOURS , Notes to Pharmacist: *Please review for potential replacement for e-prescription and drug interaction check*, Discontinued DAYQUIL COLD AND FLU 325 MG-10 MG-5 MG/15 ML SYRUP 30 ML ORALLY EVERY 4 HOURS , Notes to Pharmacist: *Please review for potential replacement for e-prescription and drug interaction check*, Discontinued Omeprazole 20 MG Capsule Delayed Release 1 cap(s) orally once a day , Discontinued Montelukast Sodium 10 MG Tablet 1 tab(s) orally once a day , Medication List reviewed and reconciled with the patient * Allergies: N .K.D.A. Objective: * Vitals: N urse: KJ, Pain: 0, Temp: 97.7, RR: 18, HR: 72, BP: 120/70, Ht: 5 ft 1 in, Wt: 222.8, BMI:42.09. * Examination: G eneral Examination: General P leasant and Cooperative, NAD on RA,. Oral cavity: M oist membranes. Heart: RRR. Lungs: L CTAB, No wheezes, crackles or rhonchi, Good air movement,. Abdomen: S oft, NTND, BSNA, No organomegaly or peritoneal signs.. Skin: w ithout acute rashes. Peripheral pulses: n ormal (2+) bilaterally. Extremities: no pitting edema, calves are soft. neck thyromegaly,, supple,. Psych N ormal Mood/Affect. Assessment: * Assessment: 1. R outine medical exam - Z00.00 (Primary) 2 . A utoimmune hypothyroidism - E03.9 3 . B OK 40.0-44.9, adult - Z68.41 4 . O besity, Class III, BMI 40-49.9 (morbid obesity) - E66.813 5 . O SA (obstructive sleep apnea) - G47.33 6 . D aytime somnolence - R40.0 7 . M ood changes - R45.86 Plan: * Treatment: 2. A utoimmune hypothyroidism Stop Levothyroxine Sodium Tablet, 150 MCG, 1 tab(s), orally, once a day; S tart Levothyroxine Sodium Tablet, 50 MCG, 1 tablet in the morning on an empty stomach, Orally, Once a day, 90 days, 90 Tablet, Refills 0. Clinical Notes: Rec resume lower dose replacement. Could be contributing to some of her recent symptoms. If these symptoms don't improve could consider trial of low dose SSRI vs repeating sleep study to see if LENCHO has progressed and insurance may now cover CPAP 3. B OK 40.0-44.9, adult Clinical Notes: overall has done a good job losing weight over the past year. encouraged to continue efforts. * Preventive Medicine: Immunizations: I nfluenza . T dap U TD. Screening / Special Tests: M ammogram s tarted early screening due to FH. P ap Smear f ollowed by REGISTERED NURSE FIRST ASSISTANT, encouraged to update. * Follow Up: 3 Months * * Sign off status: Completed true * Provider: ANNE MARIE Lieberman Date: 0 03/05/2025 Generated for Silvestre villagran/Geovanny/Rohanitting on: 0 04/02/2025 04:49 PM EDT History and Physical Notes * Examination Category Sub-Category Detail Notes Category Not es General Examination Heart: RRR Lungs: LCTAB, No wheezes, c rackles or rhonchi, Good air movement, Abdomen: Soft, NTND, BSNA, No organomegaly or peritoneal signs. Extremities: no pitting edema, ca lves are soft Skin: without acute rashes Oral cavity: Moist membranes Peripheral pulses: normal (2+) bilatera lly neck thyromegaly,, supple , General Pleasant and Coopera tive, NAD on RA, Psych Normal Mood/Affect
--- OUTSIDE RECORDS SUMMARY | 2025-04-02 16:51 | XMS_ITS | Patient Health Record ---
Author Organization [facility] Address [address] [place] [address] Care Team Providers Care Stem Maker Name Role Phone Abner Noel Primary Care Provider Heather Morena Unavailable [phone] Abner Noel Unavailable Unavailable Migration, Provider Unavailable Unavailable Allergies No Known Allergies Results Component Value Reference Range Notes Rapid Strep Reviewed date:09/16/2024 01:27:10 PM Interpretation:Negative Performing Lab: Notes/Report: Negative Rapid Covid/Flu A-B Combo Reviewed date:09/16/2024 01:27:16 PM Interpretation: Performing Lab: Notes/Report: Rapid Covid neg Flu A neg Flu B neg VITAMIN D,25-OH,TOTAL,IA (17 306) Reviewed date:02/27/2025 01:26:10 PM Interpretation: Performing Lab:[facility], [facility] [facility] [place]ord[place] Notes/Report: NON-FASTING; NON-FASTING; NON-FASTING; NON-FASTING; NON-FAST FASTING:YES FASTING: YES VITAMIN D,25-OH,TOTAL,IA 33 30-100 ng/mL of D2 and D3 fractions is required, the QuestAssureD(TM) 25-OH VIT D, (D2,D3), LC/MS/MS is recommended: order code 67399 (patients >2yrs). See Note 1 Vitamin D Status 25-OH Vitamin D: Deficiency: <20 ng/mL Insufficiency: 20 - 29 ng/mL Optimal: > or = 30 ng/mL For 25-OH Vitamin D testing on patients on D2-supplementation and patients for whom quantitation Note 1 For additional information, please refer to http://[employer] TV/faq/CVC543 (This link is being provided for informational/ educational purposes only.) TSH W/REFLEX TO FT4 (34786) Reviewed date:02/27/2025 01:26:10 PM Interpretation: Performing Lab:[facility] [place] [facility], [place] State[place]qqj[place] [place]ordi Shaw Notes/Report: NON-FASTING; NON-FASTING; NON-FASTING; NON-FASTING; NON-FAST FASTING:YES FASTING: YES TSH W/REFLEX TO FT4 4.09 Ranges First trimester 0.26-2.66 Second trimester 0.55-2.73 Third trimester 0.43-2.91 Reference Range > or = 20 Years 0.40-4.50 CBC (INCLUDES DIFF/PLT) (639 9) Reviewed date:02/27/2025 01:26:10 PM Interpretation: Performing Lab:[facility] [id number] [place] [place] StateWmilYT[address] Jordi Shaw Notes/Report: NON-FASTING; NON-FASTING; NON-FASTING; NON-FASTING; [...] MPV 11.5 7.5-12.5 fL ABSOLUTE NEUTROPHILS 3526 [phone] cells/uL ABSOLUTE LYMPHOCYTES 7069 543-9904 cells/uL ABSOLUTE MONOCYTES 265 200-950 cells/uL ABSOLUTE EOSINOPHILS 22 15-500 cells/uL ABSOLUTE BASOPHILS 22 0-200 cells/uL NEUTROPHILS 65.3 LYMPHOCYTES 29.0 MONOCYTES 4.9 EOSINOPHILS 0.4 BASOPHILS 0.4 COMPREHENSIVE METABOLIC PANE L (60214) Reviewed date:02/27/2025 01:26:10 PM Interpretation: Performing Lab:[facility] [facility], [facility] HealthQpwmCZ[address] Jordi Shaw Notes/Report: NON-FASTING; NON-FASTING; NON-FASTING; NON-FASTING; [...] 14 10-30 U/L ALT 19 6-29 U/L LIPID PANEL, STANDARD (7030) Reviewed date:02/27/2025 01:26:10 PM Interpretation: Performing Lab:[facility] [address] [place] [facility], [facility] HealthBvybUP[address] Jordi Shaw Notes/Report: NON-FASTING; NON-FASTING; NON-FASTING; NON-FASTING; [...] LDL-C. Ravindra TORREZ et al. HUI. 2013;310(19): 8513-9282 (http://[email or web address].com/faq/KFX437) CHOL/HDLC RATIO 2.9 <5.0 (calc) NON HDL CHOLESTEROL 124 <130 mg/dL (calc) For patients with diabetes plus 1 major ASCVD risk factor, treating to a non-HDL-C goal of <100 mg/dL (LDL-C of <70 mg/dL) is considered a therapeutic option. Reason For Referral No Information Medications Medication SIG (Take, Route, Frequency, Duration) Notes Start Date End Date Status Levothyroxine Sodium 50 MCG 1 tablet in the morning on an empty stomach Orally Once a day; Duration: 90 days 03/05/2025 Active Immunizations Vaccine Route Administration Date Status Comme nts PPD ID Intradermal 04/05/2011 Administered Influenza-Fluzone 3+years (NON-MEDICARE) IM Intramuscular 05/30/2017 Administered Influenza-Fluzone 3+years (NON-MEDICARE) IM Intramuscular 05/29/2018 Administered Hep A Adult 2 Dose IM Intramuscular 07/04/2018 Administere d Hep A Adult 2 Dose IM Intramuscular 01/01/2019 Administere d FLUZONE 6MO - OLDER IM Intramuscular 05/29/2019 Administer ed FLUZONE 6MO - OLDER IM Intramuscular 06/06/2022 Administer ed FLUZONE 6MO - OLDER IM Intramuscular 05/31/2023 Administer ed Fluvirin--Influenza vaccine 3+ year IM Intramuscular 06/07/2011 Administered Fluvirin--Influenza vaccine 3+ year IM Intramuscular 05/28/2012 Administered Fluvirin--Influenza vaccine 3+ year IM Intramuscular 06/09/2013 Administered Fluvirin--Influenza vaccine 3+ year IM Intramuscular 06/01/2014 Administered Fluvirin--Influenza vaccine 3+ year IM Intramuscular 05/29/2016 Administered Flublok IM Intramuscular 06/07/2020 Administered Flublok IM Intramuscular 06/07/2021 Administered Flublok IM Intramuscular 07/08/2024 Administered Boostrix IM Intramuscular 09/08/2019 Administered Problems Problem Type SNOMED Code ICD Code Onset Dates Problem Status W/U Status Risk Notes Problem Body mass index 40+ - severely obese (404473877) BMI 45.0-49.9, adult (Z68.42) Active confirmed Problem Paresthesia (10785540) Paresthesia (R20.2) Active confirmed Problem Vitamin D deficiency (05044838) Vitamin D deficiency (E55.9) Active confirmed Problem Morbid obesity (439541017) Morbid obesity (E66.01) Active confirmed Problem Lymphedema (10728705) Lymphedema (I89.0) Active confirmed Problem Hyperlipidemia (62831222) Hyperlipidemia LDL goal <130 (E78.5) Active confirmed Problem Restless legs (52204280) RLS (restless legs syndrome) (G25.81) Active confirmed Problem Body mass index 40+ - morbidly obese (257510843) BMI 40.0-44.9, adult (Z68.41) Active confirmed Problem Thyroid nodule (620631165) Thyroid nodule (E04.1) Active confirmed Problem Gastroesophageal reflux disease (008309016) Gastroesophageal reflux disease, esophagitis presence not specified (K21.9) Active confirmed Problem Peripheral edema (41105908) Peripheral edema (R60.9) Active confirmed Problem Morbid obesity (519108274) Obesity, Class III, BMI 40-49.9 (morbid obesity) (E66.01) Active confirmed Problem Obstructive sleep apnea syndrome (57284064) LENCHO (obstructive sleep apnea) (G47.33) Active confirmed Problem Daytime somnolence (717569193463) Daytime somnolence (R40.0) Active confirmed Problem Family history of breast cancer (816468906) Family history of breast cancer (Z80.3) Active confirmed Problem Obesity (228911754) Obesity (BMI 35.0-39.9 without comorbidity) (E66.9) Active confirmed Problem Goiter (9342805) Enlarged thyroi d (E01.0) Active confirmed Problem Autoimmune hypothyroidism (520013555) Autoimmune hypothyroidism (E03.9) Active confirmed Problem Sciatica (55179747) Low back armani n with right-sided sciatica, unspecified back pain laterality, unspecified chronicity (M54.41) Active confirmed Problem Breast cancer screening (322978110) Breast cancer screening (Z12.31) Active confirmed Problem Stasis dermatitis (disorder) (66383255) Stasis dermatitis of both legs (I87.2) Active confirmed Problem Mixed hyperlipidemia (962859109) Mixed dyslipidemia (E78.2) Active confirmed Problem Exposure to COVID-19 (328243386) Exposure to COVID-19 virus (Z20.828) Active confirmed Vital Signs Heart Rate 72 /min 03/05/2025 Temperature 97.7 degrees Fahrenheit 03/05/2025 Blood pressure diastolic 70 mm Hg 03/05/2025 Height 5 ft 1 in in 03/05/2025 Blood pressure systolic 120 mm Hg 03/05/2025 Weight 222.8 lbs 03/05/2025 BMI 42.09 kg/m2 03/05/2025 Encounters Encounter Location Date Provider Diagnosis Line [facility] PED ANGELA [address] [place] [address] 11/29/2024 Provider Migration Line [facility] AN[place] [address] [place] [address] 07/08/2024 [facility] Immunization(s) administered Z23 Line [facility] P[facility] AN[place] [address] [place], [place] [address] 09/16/2024 [facility] Sore throat J02.9 an d URI with cough and congestion J06.9 Line [facility] P[facility] ANGEL[place] [address] [place], [place] [address] 03/05/2025 [facility] Routine medical exam Z00.00 ; 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 ; BMI 40.0-44.9, adult Z68.41 ; Obesity, Class III, BMI 40-49.9 (morbid obesity) E66.813 ; LENCHO (obstructive sleep apnea) G47.33 ; Daytime somnolence R40.0 and Mood changes R45.86 Line [facility] AN[place] [address] [place], [place] [address] 02/03/2025 [facility] Breast cancer screening Z12.31 Line [facility] P[facility] ANG[place] [address] [place], [place] [address] 02/24/2025 Morena Romero Routine medical exam Z00.00 ; 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 Discussed supportive care and symptom management with PO fluids, Antipyretics, and antihistamines. Discussed the rational for not prescribing antibiotics for viral infection. Discussed the signs and symptoms of worsening condition and need for reassessment in clinic or ED. 02/03/2025 Breast cancer screening (ICD-10 - Z12.31) 02/24/2025 Autoimmune hypothyroidism (ICD-10 - E03.9) 03/05/2025 Routine medical exam (ICD-10 - Z00.00) Well Visit, Ages 18 to 65: Care Instructions material was published, Learning About Stress material was published 02/24/2025 Routine medical exam (ICD-10 - Z00.00) 03/05/2025 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 Could be contributing to some of her recent symptoms. If these symptoms don't improve could consider trial of low dose SSRI vs repeating sleep study to see if LENCHO has progressed and insurance may now cover CPAP 02/24/2025 Hyperlipidemia LDL goal <130 (ICD-10 - E78.5) 03/05/2025 BMI 40.0-44.9, adult (ICD-10 - Z68.41) overall has done a good job losing weight over the past year. encouraged to continue efforts. 02/24/2025 Vitamin D deficiency (ICD-10 - E55.9) 03/05/2025 Obesity, Class III, BMI 40-49.9 (morbid obesity) (ICD-10 - E66.813) 03/05/2025 LENCHO (obstructive sleep apnea) (ICD-10 - G47.33) 03/05/2025 Daytime somnolence (ICD-10 - R40.0) 03/05/2025 Mood changes (ICD-10 - R45.86) Plan Of Treatment Pending Test Test Name Order Date X ray : Chest 05/23/2013 Ultrasound : Thyroid 12/19/2016 EKG : In House 10/19/2016 Physical Therapy 03/11/2012 Mammogram : Bilateral 02/03/2025 Occupational Therapy : Eval & Treatment 05/14/2023 H-CBC with AUTO DIFF 05/23/2013 H-CBC with AUTO DIFF 07/26/2012 H-CBC with AUTO DIFF 05/16/2013 H-VITAMIN B12 07/26/2012 H-CMP 07/26/2012 H-CMP 05/16/2013 H-TSH 07/26/2012 C-BASIC METABOLIC 03/01/2017 C-CMP 09/06/2020 C-LIPID PANEL 09/06/2020 C-TSH 03/01/2017 C-TSH 05/28/2017 C-FREE T4 03/04/2020 C-FREE T4 11/04/2018 C-FREE T4 07/16/2020 C-FREE T4 09/04/2019 C-FREE T4 03/03/2019 C-FREE T4 09/02/2018 C-FREE T4 03/04/2018 C-FREE T4 09/03/2017 C-THYROID PEROXIDASE AB 11/29/2016 C-VITAMIN B12 09/16/2012 C-URINE CULTURE 12/04/2014 C-URINE CULTURE 09/25/2013 C-URINE CULTURE 05/15/2013 C-URINE CULTURE 02/19/2012 C-THROAT CULTURE 12/23/2014 C-CRP 09/06/2020 Physical Therapy : Lymphedema 03/17/2022 M-Vitamin D 25 Hydroxy 05/12/2021 C-COVID-19 PCR 03/05/2020 M-COVID 19 PCR SEND OUT 06/10/2020 M-COVID PCR SINGLE RAPID 10/04/2020 Physical Therapy Eval and Treat 03/03/20 24 Insurance Providers Payer Name Payer Address Payer Phone Subscriber Number Group Number Insured Name Patient Relationship to Insured Coverage Start Date Coverage End Date [employer] [address] [place] [address] [id number] Moerna Mcclellan Self - patient is the insured 5 Medications Administered Medication Instructions Date of Administration Dosage Notes Ceftriaxone 500 09/06/2015 500 mg Cyanocobalamin/B-12 Pt's Own Medication 01/30/2013 Cyanocobalamin/B-12 Pt's Own Medication 03/27/2013 Dexamethasone 4mg Injection 08/11/2021 4 mg Dexamethasone 4mg Injection 10/05/2022 4 mg Dexamethasone 4mg Injection 08/01/2023 4 mL Dexamethasone 4mg Injection 02/25/2024 4 mg Triamcinolone Acetonide 40mg Injection 01/23/2018 1 mL Triamcinolone Acetonide 40mg Injection 10/27/2019 1 mL Triamcinolone Acetonide 40mg Injection 12/28/2020 1 mL Kenalog 02/28/2013 1 mL Kenalog 04/01/2013 1 Kenalog 07/22/2013 1 Kenalog 09/30/2013 1 Kenalog 05/13/2014 1 Kenalog 12/23/2014 1 mL Kenalog 07/01/2015 1 mL Medical (General) History Medical History History ICD Code Hypothyroidism Enlarged thyroid with thyroid nodule - b iopsy c/w lymphocytic thyroiditis Morbid (severe) obesity due to excess ca lories E66.01 vitamin D deficiency Mild LENCHO Surgical History Surgery Date(Month/Year) tubal 2010 thyroid biopsy 2017 capel tunnel on left hand Hospitalization History Reason Date(Month/Year) Childbirth 2008 & 2010
--- NOTE | 2025-04-02 16:58 | MM_ITS ---
PROCEDURE INFORMATION: Exam: MG Bilateral Screening 3D Mammography Exam date and time: 04/02/2025 4:57 PM Age: 40 years old Clinical indication: Screening. Her mother and sister had breast cancer, sister at age 50. TECHNIQUE: Imaging protocol: Bilateral Screening tomosynthesis and 2D mammography including computer-aided detection (CAD) when performed. COMPARISON: 1. MG MM DIG SCREENING MAMM BI W/CAD 03/28/2024 8:09 AM 2. MG MM DIG SCREENING MAMM BI W/CAD 03/27/2023 7:55 AM 3. MG MM DIG SCREENING MAMM BI W/CAD 02/23/2022 7:59 AM 4. US - BR US BREAST-RT 04/23/2013 8:07 AM FINDINGS: MAMMOGRAPHY: Breast composition: There are scattered areas of fibroglandular density. Mass: None. Architectural distortion: None. Calcifications: No suspicious calcifications. Asymmetric density: None. Skin thickening: None. Axillary adenopathy: None. IMPRESSION: No mammographic evidence of malignancy. Annual screening is recommended unless otherwise clinically indicated. Given the reported risk factors, a breast cancer risk assessment may prove useful for further evaluation. ASSESSMENT: BI-RADS Category 1: Negative.
== END 2025-04-02 23:59 | disposition home or self-care (01) ==
LOC: RAD 16:48
PROVIDERS: PCP Nurse Practitioner Family; Referring Provider Nurse Practitioner Family; Visit Provider Nurse Practitioner Family
DX: Z12.31 Encounter for screening mammogram for malignant neoplasm of breast (principal); R92.323 Mammographic fibroglandular density, bilateral breasts; Z80.3 Family history of malignant neoplasm of breast
CPT/HCPCS: 77063; 77067